=== PATIENT | male | born 1965 | race Caucasian/White ===

== ENCOUNTER 2017-05-21 15:40 | Emergency (ER) | payer OTHER ==
[~2017-05-21] VITALS: Ht 175.3 cm; Wt 85.0 kg
[2017-05-21 15:50] VITALS: BP 146/85; PULSE 58; RESP 16; O2SAT 97
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
[2017-05-21] MEDS ORDERED: oxyCODONE-Acetamin 5-325 mg Tablet PO ONE (17:25)
[2017-05-21] MEDS ORDERED: OXYC1TAB24 PO (18:14)
[2017-05-21 19:02] VITALS: BP 140/80; PULSE 59; RESP 16; O2SAT 96
== END 2017-05-21 19:04 | disposition home or self-care (01) ==
LOC: SED 15:40
DX: S43.102A Unspecified dislocation of left acromioclavicular joint, initial encounter (principal); V18.0XXA Pedal cycle driver injured in noncollision transport accident in nontraffic accident, initial encounter; Y93.55 Activity, bike riding; Y92.828 Other wilderness area as the place of occurrence of the external cause; Y99.8 Other external cause status; R51 Headache; R11.0 Nausea; M43.6 Torticollis; J45.909 Unspecified asthma, uncomplicated; Z85.72 Personal history of non-Hodgkin lymphomas